=== PATIENT | female | born 1970 | race Caucasian/White ===

== ENCOUNTER 2019-07-27 22:23 | Emergency (ER) | payer BC ==
[~2019-07-27] VITALS: Ht 172.7 cm; Wt 97.7 kg
[2019-07-27 22:26] VITALS: BP 145/100
--- NOTE | 2019-07-27 22:32 | NUR ---
PT TO XRAY
[2019-07-27] MEDS ORDERED: HYDROcodone/acetaminophen 10/325mg tab PO ONE (22:55)
[2019-07-27] MEDS ORDERED: HYDR-4353 PO (22:55)
== END 2019-07-27 23:07 | disposition home or self-care (01) ==
LOC: ER 22:24
DX: M75.22 Bicipital tendinitis, left shoulder (principal); R07.89 Other chest pain; Z79.899 Other long term (current) drug therapy
CPT/HCPCS: 73030; 99283